=== PATIENT | male | born 1965 | race Caucasian/White ===

== ENCOUNTER 2017-07-04 12:13 | Observation (INO) ==
[2017-07-04 13:05] LABS: Basophils # 0.1 K/mcL (0.0-0.2); Basophils % 0.6 %; Eosinophils # 0.2 K/mcL (0.0-0.6); Eosinophils % 2.3 %; Hematocrit 46.7 % (37.5-50.1); Hemoglobin 15.7 g/dL (12.9-16.9); Immature Granulocytes % 0.3 % (0-4); Lymphocytes # 1.8 K/mcL (0.6-4.6); Lymphocytes % 20.4 %; Mean Corpuscular HGB Conc 33.6 g/dL (31.6-35.5); Mean Corpuscular Hemoglobin 30.1 pg (28.0-33.3); Mean Corpuscular Volume 89.6 fL (83.0-100.0); Mean Platelet Volume 9.3 fL (9.4-12.4); Monocytes # 0.6 K/mcL (0.0-1.3); Monocytes % 6.1 %; Neutrophils # 6.3 K/mcL (1.6-8.9); Platelet Count 226 K/mcL (140-400); Red Blood Count 5.21 M/mcL (4.19-5.50); Red Cell Distribution Width 13.7 % (11.5-14.5); Segmented Neutrophils % 70.3 %
[2017-07-04 13:29] LABS: Troponin I < 0.03 ng/mL (< 0.04)
[2017-07-04 13:38] LABS: Alanine Aminotransferase 20 Units/L (7-52); Albumin 4.5 g/dL (3.5-5.7); Albumin/Globulin Ratio 1.6 (1.1-2.2); Alkaline Phosphatase 108 Units/L (34-104); Aspartate Amino Transferase 16 Units/L (13-39); BUN/Creatinine Ratio 18 (6-26); Bilirubin,Total 0.5 mg/dL (0.3-1.0); Blood Urea Nitrogen 15 mg/dL (6-20); Calcium 9.4 mg/dL (8.6-10.3); Carbon Dioxide 21 mEq/L (23-29); Chloride 107 mEq/L (98-107); Globulin 2.8 g/dL (2.4-3.5); Glucose 217 mg/dL (70-105); Osmolality,Calculated 293 (280-300); Potassium 4.1 mEq/L (3.5-5.1); Sodium 138 mEq/L (136-145); Total Protein 7.3 g/dL (6.4-8.9); eGFR For African Americans > 60 (> 60); eGFR For Non-African Americans > 60 (> 60)
--- NOTE | 2017-07-04 14:49 | Emergency Department Note ---
Disposition Clinical Impression: Chest pain Qualifiers: Chest pain type: unspecified Qualified Code(s): R07.9 - Chest pain, unspecified Disposition: Admitted As Inpatient Condition: Good Referrals: Daniel Romero MD [Primary Care Provider] - Time of Disposition: 14:49 Chest Pain HPI - General Chief Complaint: ED Chest Pain Stated Complaint: CP Time Seen by Provider: 07/04/17 14:30 Source: patient Limitations: no limitations - History of Present Illness Severity scale (1-10): 5 - Related Data Home Medications Medication Instructions Recorded Confirmed Aspirin [Adult Low Dose Aspirin EC] 81 mg PO DAILY 05/12/15 05/12/15 Atorvastatin [Lipitor] 40 mg PO HS 05/12/15 05/12/15 Citalopram [CeleXA] 20 mg PO DAILY 05/12/15 05/12/15 Metoprolol [Lopressor] 25 mg PO DAILY 05/12/15 05/12/15 amLODIPine [Norvasc] 2.5 mg PO DAILY 05/12/15 05/12/15 Previous Rx's Medication Instructions Recorded Methocarbamol [Robaxin] 500 mg PO Q8HR #30 tablet 05/13/15 clonazePAM [Klonopin] 0.5 mg PO BID PRN #60 tablet 05/13/15 Cyclobenzaprine [Flexeril] 10 mg PO TID #20 tablet 09/30/15 Ibuprofen [Motrin] 600 mg PO Q6HR PRN #20 tablet 09/30/15 traMADol [Ultram] 50 mg PO Q6HR #20 tablet 09/30/15 predniSONE [Prednisone] 40 mg PO DAILY #10 tablet 10/05/15 Allergies Allergy/AdvReac Type Severity Reaction Status Date / Time No Known Allergies Allergy Verified 07/04/17 12:22 Chest Pain PMH - Past Medical History Medical history: Reports: COPD, coronary artery disease, diabetes, hypertension Psychiatric history: Reports: anxiety, depression - Social History Smoking Status: Current every day smoker Alcohol use: Reports: none Drug use: Reports: marijuana Physical Exam - General Limitations: no limitations General appearance: alert Course - Reevaluation(s) Reevaluation #1: 51-year-old with multiple risk factors no recent cardiac catheter comes in with chest pain. Saw his family doctor today sent in for evaluation. Workup here shows a normal troponin patient will be admitted for rule out. Time: 14:48 - Consultations Consultation #1: Discussed with , admit. Time: 14:48 Vital Signs Temperature 98 F 07/04/17 12:23 Pulse Rate 68 07/04/17 12:23 Respiratory Rate 20 07/04/17 12:23 Blood Pressure 134/82 07/04/17 12:23 O2 Sat by Pulse Oximetry 97 07/04/17 12:23 Temperature 98 F 07/04/17 12:23 Pulse Rate 68 07/04/17 12:23 Respiratory Rate 20 07/04/17 12:23 Blood Pressure 134/82 07/04/17 12:23 O2 Sat by Pulse Oximetry 97 07/04/17 12:23 Oxygen Delivery Oxygen Delivery Room Air Chest Pain - Lab Data Lab results reviewed: Yes I reviewed the patient's lab results. Result diagrams: 07/04/17 12:38 07/04/17 12:38 Lab Results 07/04/17 07/04/17 Range/Units 12:38 12:38 WBC 9.0 (4.3-11.1) K/mcL RBC 5.21 (4.19-5.50) M/mcL Hgb 15.7 (12.9-16.9) g/dL Hct 46.7 (37.5-50.1) % MCV 89.6 (83.0-100.0) fL MCH 30.1 (28.0-33.3) pg MCHC 33.6 (31.6-35.5) g/dL RDW 13.7 (11.5-14.5) % Plt Count 226 (140-400) K/mcL MPV 9.3 L (9.4-12.4) fL Immature Gran % 0.3 (0-4) % Seg Neutrophils % 70.3 % Lymphocytes % 20.4 % Monocytes % 6.1 % Eosinophils % 2.3 % Basophils % 0.6 % Neutrophils # 6.3 (1.6-8.9) K/mcL Lymphocytes # 1.8 (0.6-4.6) K/mcL Monocytes # 0.6 (0.0-1.3) K/mcL Eosinophils # 0.2 (0.0-0.6) K/mcL Basophils # 0.1 (0.0-0.2) K/mcL Sodium 138 (136-145) mEq/L Potassium 4.1 (3.5-5.1) mEq/L Chloride 107 (98-107) mEq/L Carbon Dioxide 21 L (23-29) mEq/L BUN 15 (6-20) mg/dL Creatinine 0.82 (0.70-1.30) mg/dL Est GFR ( Amer) > 60 (> 60) Est GFR (Non-Af Amer) > 60 (> 60) BUN/Creatinine Ratio 18 (6-26) Glucose 217 H (70-105) mg/dL Calculated Osmolality 293 (280-300) Calcium 9.4 (8.6-10.3) mg/dL Total Bilirubin 0.5 (0.3-1.0) mg/dL AST 16 (13-39) Units/L ALT 20 (7-52) Units/L Alkaline Phosphatase 108 H (34-104) Units/L Troponin I < 0.03 (< 0.04) ng/mL Serum Total Protein 7.3 (6.4-8.9) g/dL Albumin 4.5 (3.5-5.7) g/dL Globulin 2.8 (2.4-3.5) g/dL Albumin/Globulin Ratio 1.6 (1.1-2.2) - Radiology Data Radiology results reviewed: Yes I reviewed the patient's radiology results. Chest X-Ray 07/04/17 12:25 IMPRESSION: No acute cardiopulmonary process. D/ / 07/04/2017 13:10:45 Byron Sy MD / june Interpreting Provider: Byron Sy MD Heart Score - Score History: Moderately Suspicious EKG: Normal Age: 45-65 Risk Factors: Equal/Greater than 3 risk factor or history of atherosclerotic disease Troponin: Less than normal limit HEART Score Total: 4
[2017-07-04] MEDS ORDERED: Naloxone 0.4 MG/ML INJ IVP PRN (15:42)
[2017-07-04] MEDS ORDERED: D5% in Water 1,000 ML IVC PRN (15:43)
[2017-07-04] MEDS ORDERED: *HR* Dextrose 50 % in Water (Syg) 50 ML SYRINGE IVP PRN (15:43)
[2017-07-04] MEDS ORDERED: Dextrose Gel 15 GM/37.5 ML TUBE PO PRN ×2 (15:43)
[2017-07-04] MEDS ORDERED: Nitroglycerin 0.4 MG TAB.SUBL SL SCH (15:45)
--- NOTE | 2017-07-04 16:36 | Internal Med History&Physical ---
<Franco Wolf - Last Filed: 07/04/17 18:53> Date of Encounter: 07/04/17 Time of Encounter: 16:32 Internal Medicine - H&P: HPI Chief complaint: CHEST PAIN Admitted From: Home Plans for Post Hospital Care: Home History of present illness: Mr. Caceres is a 51 year old male with a PMH of COPD, coronary artery disease, diabetes, and hypertension. He presents to the ED today with a chief complaint of chest pain. He states that the chest pain is midsternal and feels like a "pushing sensation "in his chest pushing his heart to the left. He denies any radiation but does admit to some shortness of breath and at times diaphoresis. He rates the pain 4/10. He denies any aggravating or alleviating factors. The patient has a significant family history of sudden cardiac and a history of CAD with multiple risk factors for OH including diabetes, hypertension and smoking history. He reports he has not had any recent cardiac evaluation. His initial troponin is negative, his chest x-ray is also negative. Vital signs remained stable. He is being admitted to rule out ACS. Past Med Surg Social Fam HX - Past Medical History Medical history: COPD, coronary artery disease, diabetes, hypertension Psychiatric history: anxiety, depression - Social History Smoking Status: Current every day smoker Smokeless Tobacco Status: No Alcohol use: none Drug use: marijuana - Family History Father Hx Family Cardiac Disorders: Yes (CAD) Mother Age: 70 Living Status: Still Living Hx Family Cardiac Disorders: Yes (CHF) Internal Medicine - H&P: Meds Aspirin [Adult Low Dose Aspirin EC] 81 mg PO DAILY 05/12/15 [History] Atorvastatin [Lipitor] 40 mg PO HS 05/12/15 [History] Citalopram [CeleXA] 20 mg PO DAILY 05/12/15 [History] Metoprolol [Lopressor] 25 mg PO DAILY 05/12/15 [History] amLODIPine [Norvasc] 2.5 mg PO DAILY 05/12/15 [History] Nitroglycerin [Nitrostat] 0.4 mg SL Q5M 07/04/17 [History] Sitagliptin Phos/Metformin HCl [Janumet Xr 100-1,000 mg Tablet] 1 tab PO DAILY 07/04/17 [History] 3 Allergy/AdvReac Type Severity Reaction Status Date / Time No Known Allergies Allergy Verified 07/04/17 15:17 All Systems PM: A 10-system review of systems was performed and is negative for pertinent findings except as documented above in the HPI. Review of systems: REVIEW OF SYSTEMS GENERAL: Negative for any nausea, vomiting, fevers, chills, or weight loss. NEUROLOGIC: Negative for any blurry vision, blind spots, double vision, facial asymmetry, dysphagia, dysarthria, hemiparesis, hemisensory deficits, vertigo, ataxia. HEENT: Negative for any head trauma, neck trauma, neck stiffness, photophobia, phonophobia, sinusitis, rhinitis. CARDIAC: Negative for any paroxysmal nocturnal dyspnea, peripheral edema. Positive for chest pain, shortness of breath PULMONARY: Negative for any wheezing, COPD, or TB exposure. GASTROINTESTINAL: Negative for any abdominal pain, nausea, vomiting, bright red blood per rectum, melena. GENITOURINARY: Negative for any dysuria, hematuria, incontinence. INTEGUMENTARY: Negative for any rashes, cuts, insect bites. RHEUMATOLOGIC: Negative for any joint pains, photosensitive rashes, history of vasculitis or kidney problems. HEMATOLOGIC: Negative for any abnormal bruising, frequent infections or bleeding. - Constitutional Vitals: Temp Pulse Resp BP Pulse Ox 98 F 68 14 129/78 97 07/04/17 12:23 07/04/17 12:23 07/04/17 16:27 07/04/17 16:27 07/04/17 12:23 General appearance: Present: cooperative, A&O X 3, no acute distress, answers questions appropriately Exam: PHYSICAL EXAMINATION: GENERAL: The patient is a well-developed, well-nourished male in no apparent distress. He is alert and oriented x3. HEENT: Head is normocephalic and atraumatic. Extraocular muscles are intact. Pupils are equal, round, and reactive to light and accommodation. NECK: Supple. No carotid bruits. No lymphadenopathy or thyromegaly. LUNGS: Clear to auscultation. HEART: Regular rate and rhythm without murmur. ABDOMEN: Soft, diffuse, mild abdominal tenderness, nondistended. Positive bowel sounds. No hepatosplenomegaly was noted. EXTREMITIES: Without any cyanosis, clubbing, rash, lesions or edema. NEUROLOGIC: No facial droop or slurred speech noted PSYCHIATRIC: Appropriate affect, but denies suicidal or homicidal ideations. SKIN: No ulceration , rashes or lesions Internal Med - H&P Results - Labs CBC & Chem 7: 07/04/17 12:38 07/04/17 12:38 - EKG Data -: EKG Interpreted by Myself EKG shows normal: sinus rhythm - Impressions Impressions Chest X-Ray 07/04/17 12:25 IMPRESSION: No acute cardiopulmonary process. D/ / 07/04/2017 13:10:45 Byron Sy MD / june Interpreting Provider: Byron Sy MD - Assessment and plan (1) Chest pain Current Visit: Yes Status: Acute Assessment and plan: ASSESSMENT: Presents today with a three-day history of chest pain described as a dull "pushing sensation". No prior h/o OH. He has a significant family hx of sudden cardiac . Risk factors include HTN, DM, smoking hx, and family hx. Initial troponin negative, CXR negative for acute pulmonary process, EKG shows no ST elevation or depression. He is being admitted for observation for ACS rule out PLAN: - cardiac enzymes x 2 q 6 hr - EKG now and in AM - ASA - O2 by NC to keep SpO2 greater than 92% - CBCD, BMP in AM - Fasting lipids - Heparin 5000 U SQ BID - 2D Echo - Stress in the am - Cardiology consult pending results of workup Qualifiers: Chest pain type: unspecified Qualified Code(s): R07.9 - Chest pain, unspecified (2) Diabetes Current Visit: Yes Status: Acute Assessment and plan: Sliding scale insulin coverage Qualifiers: Diabetes mellitus type: type 2 Diabetes mellitus complication status: without complication Qualified Code(s): E11.9 - Type 2 diabetes mellitus without complications (3) Tobacco abuse Current Visit: Yes Status: Acute Assessment and plan: Daily smoker, does not wish to quit at this time nicotine patch remove at midnight (4) Hypertension Current Visit: Yes Status: Chronic Assessment and plan: History of hypertension, BP currently stable, continue calcium channel florentin and beta florentin Qualifiers: Hypertension type: essential hypertension Qualified Code(s): I10 - Essential (primary) hypertension (5) DVT prophylaxis Current Visit: Yes Status: Acute Assessment and plan: Subcutaneous heparin - Time Spent With Patient Total time spent is greater than 50% in coordination of care (as documented) at patient's floor/unit and/or counseling patient: 25 - 35 minutes <Candelario Overton - Last Filed: 07/04/17 21:30> Date of Encounter: 07/04/17 Internal Medicine - H&P: HPI History of present illness: Mr. Caceres is a 51 year old male All Systems PM: A 10-system review of systems was performed and is negative for pertinent findings except as documented above in the HPI. - Constitutional Vitals: Temp Pulse Resp BP Pulse Ox 98.0 F 66 16 112/66 96 07/04/17 19:07 07/04/17 19:07 07/04/17 19:07 07/04/17 19:07 07/04/17 19:07 Internal Med - H&P Results - Labs CBC & Chem 7: 07/04/17 12:38 07/04/17 12:38 Labs: Cardiac Enzymes 07/04/17 Range/Units 16:56 Troponin I < 0.03 (< 0.04) ng/mL - Attending Attestation I performed a history and physical exam of the patient and discussed his management with MAORI PHYSIOTHERAPIST. I reviewed the MAORI PHYSIOTHERAPIST's note and agree with the documented findings and plan of care. Briefly, patient is a 51 y/o WM with history of CAD who presented to ED with 1 -day history of substernal chest pain accompanied by some SOB. He is high risk for ACS with DM, HTN, smoking status, and family history. Will admit for ACS rule-out with trending of troponin and stress test in AM. PE: Gen - Awake, alert, NAD HEENT - NCAT, PERRLA, EOMI, hearing grossly intact, oropharynx benign CV - RRR, normal S1 and S2, no M/R/G, no BLE edema Resp - CTAB, no W/R/R, normal WOB Skin - Warm, dry, no rashes/lesions/ulcers Psych - Normal mood and affect, no depression or anxiety Candelario Overton MD - Assessment and plan (1) Chest pain Current Visit: Yes Status: Acute Qualifiers: Chest pain type: unspecified Qualified Code(s): R07.9 - Chest pain, unspecified (2) Diabetes Current Visit: Yes Status: Acute Qualifiers: Diabetes mellitus type: type 2 Diabetes mellitus complication status: without complication Qualified Code(s): E11.9 - Type 2 diabetes mellitus without complications (3) Hypertension Current Visit: Yes Status: Chronic Qualifiers: Hypertension type: essential hypertension Qualified Code(s): I10 - Essential (primary) hypertension (4) Tobacco abuse Current Visit: Yes Status: Acute (5) DVT prophylaxis Current Visit: Yes Status: Acute - Time Spent With Patient Total time spent is greater than 50% in coordination of care (as documented) at patient's floor/unit and/or counseling patient:
[2017-07-04] MEDS ORDERED: Nicotine 21 MG PATCH.TD24 TD SCH (16:45)
[2017-07-04] MEDS ORDERED: Nitroglycerin 0.4 MG TAB.SUBL SL PRN ×2 (17:28→17:29)
[2017-07-04] MEDS: Aspirin Enteric Coated 81 MG Tablet PO SCH (17:41)
[2017-07-04] MEDS: amLODIPine 5 MG TABLET PO SCH (17:41)
[2017-07-04] MEDS: *HR* Heparin 5,000 UNIT/ML VIAL SQ SCH ×2 (17:42→18:24)
[2017-07-04] MEDS: Insulin LISPRO 300 UNITS/3 ML VIAL SQ SCH (17:43)
[2017-07-04] MEDS ORDERED: Insulin LISPRO 300 UNITS/3 ML VIAL SQ SCH (21:00)
[2017-07-05] MEDS: *HR* Heparin 5,000 UNIT/ML VIAL SQ SCH (05:12)
[2017-07-05 05:41] LABS: Chol/HDL Ratio 3.5 (0-4.9)
[2017-07-05] MEDS ORDERED: Regadenoson 0.4 MG/5 ML SYRINGE IVP ONE (08:09)
[2017-07-05] MEDS: Insulin LISPRO 300 UNITS/3 ML VIAL SQ SCH ×2 (08:17→12:32)
[2017-07-05] MEDS: amLODIPine 5 MG TABLET PO SCH (10:40)
[2017-07-05] MEDS: Aspirin Enteric Coated 81 MG Tablet PO SCH (10:42)
[2017-07-05 11:00] VITALS: BP 115/70
--- NOTE | 2017-07-05 13:23 | Discharge Summary ---
- NOTES TO OUTPATIENT PROVIDER Notes to Outpatient Provider: Follow-up with primary care physician within the week Orders not resulted at time of discharge: Pending orders 07/05/17 06:15 NM valeria perf SPECT multi [NM] Routine Date of Encounter: 07/05/17 Time of Encounter: 13:21 - Discharge Diagnosis (1) Chest pain Priority: Primary Status: Resolved Qualifiers: Chest pain type: unspecified Qualified Code(s): R07.9 - Chest pain, unspecified (2) Diabetes Priority: Primary Status: Chronic Qualifiers: Diabetes mellitus type: type 2 Diabetes mellitus complication status: without complication Qualified Code(s): E11.9 - Type 2 diabetes mellitus without complications (3) Hypertension Priority: Primary Status: Chronic Qualifiers: Hypertension type: essential hypertension Qualified Code(s): I10 - Essential (primary) hypertension (4) Tobacco abuse Priority: Primary Status: Acute Hospital course: Mr. Caceres is a 51 year old male with a past medical history of COPD, CAD, diabetes mellitus, and hypertension. He presented to the ER with chest pain that was midsternal and felt like up "pushing sensation". He denied any radiation of pain but said he did have some shortness of breath and starting of some sweats. His troponins were negative, his chest x-ray with nothing acute. Vital signs were stable. He underwent a stress test. Impression low level exercise pharmacological stress ECG is negative for ischemia at level of heart rate achieved. Gated EF greater than 70%. Small size mild intensity fixed inferior perfusion defect consistent with artifact. Perfusion imaging was negative for ischemia or infarct. Patient is a smoker and cessation was recommended. Patient was discharged in a stable condition. Discharge discussed with: patient, family, nurse Time spent discussing smoking cessation with patient: 3 to 10 minutes - Time Spent with Patient Total time spent providing and/or coordinating discharge services: Less than 30 minutes - Discharge Medications Home Medications: Aspirin [Adult Low Dose Aspirin EC] 81 mg PO DAILY 05/12/15 [History] Atorvastatin [Lipitor] 40 mg PO HS 05/12/15 [History] Citalopram [CeleXA] 20 mg PO DAILY 05/12/15 [History] Metoprolol [Lopressor] 25 mg PO DAILY 05/12/15 [History] amLODIPine [Norvasc] 2.5 mg PO DAILY 05/12/15 [History] Nitroglycerin [Nitrostat] 0.4 mg SL Q5M 07/04/17 [History] Sitagliptin Phos/Metformin HCl [Janumet Xr 100-1,000 mg Tablet] 1 tab PO DAILY 07/04/17 [History] Allergies/Adverse Reactions: 3 Allergy/AdvReac Type Severity Reaction Status Date / Time No Known Allergies Allergy Verified 07/04/17 15:17 Date of admission: 07/04/17 15:51 Primary care physician: Daniel Romero MD Discharging clinician: Carly Madden Anticipated date of discharge: 07/05/17 - Constitutional Vitals: Temp Pulse Resp BP Pulse Ox 97.8 F 71 14 115/70 97 07/05/17 10:59 07/05/17 10:59 07/05/17 10:59 07/05/17 10:59 07/05/17 10:59 General appearance: Present: cooperative, A&O X 3, no acute distress, answers questions appropriately - Head Head exam: Present: atraumatic, normocephalic - Eye Eye exam: Present: PERRL, conjuntiva pink, sclera anicteric Pupils: Present: PERRL - Neck Neck exam general surgery: Present: supple, trachea midline. Absent: lymphadenopathy - Respiratory Respiratory exam: Present: CTAB. Absent: accessory muscle use, rales, rhonchi, wheezes - Cardiovascular Cardiovascular exam: Present: RRR, +S1, +S2. Absent: diastolic murmur, gallop, rubs, systolic murmur - GI/Abdominal GI/Abdominal exam: Present: normal bowel sounds, soft, no peritoneal signs. Absent: distended, tenderness - Extremities Exam Extremities exam: Present: warm, radial pulses palpable and symmetrical. Absent : calf tenderness, cyanotic, pedal edema - Neurological Exam Neurological exam: Present: alert, CN II-XII intact, normal gait, oriented X3, no focal deficits. Absent: pronater drift, facial droop, speech deficit - Skin Skin exam: Present: dry, intact, normal color, warm - Patient Status Disposition: Home, Self-Care Condition: Good Functional capacity at discharge: independent ambulation Overall status at discharge: patient is back to baseline - Discharge Instructions Instructions: Chest Pain (GEN), Chronic Hypertension (DC) Follow Up With: Daniel Romero MD [Primary Care Provider] - - Diet and Activity Activity: resume usual activities as tolerated Diet: advance to your usual diet, diabetic diet, low fat, low cholesterol, low salt diet
--- NOTE | 2017-07-07 08:55 | Electrocardiograph Report ---
[facility] Test Date: 2017-07-04 Pat Name: Danny Caceres Department: 104 Room: 3B37 Gender: M [employer] Worker: : 1965 Requested By: Robbi Marley Order Number: [id number] Reading MD: Marvin Isaacs Measurements Intervals [place] Rate: 74 P: 38 [place]: 137 QRS: 56 QRSD: 89 T: 55 QT: 376 QTc: 403 Interpretive Statements SINUS RHYTHM wnl Electronically Signed On 07-07-2017 8:54:07 EDT by Marvin Isaacs
== END 2017-07-05 14:10 | disposition home or self-care (01) ==
LOC: EMEROO 12:13 → 3BNU 12:13
PROVIDERS: ADMIT Nurse Practitioner; ATTEND Registered Nurse

== ENCOUNTER 2018-01-08 23:15 | Observation (INO) ==
[2018-01-08] MEDS ORDERED: Nitroglycerin 0.4 MG TAB.SUBL SL PRN (23:36)
[2018-01-08] MEDS ORDERED: Aspirin 325 MG TABLET PO ONE (23:36)
[2018-01-08] MEDS ORDERED: Ondansetron 4 MG/2 ML VIAL IVP ONE (23:37)
--- NOTE | 2018-01-08 23:39 | Emergency Department Note ---
Disposition Clinical Impression: Hyperglycemia Chest pain Qualifiers: Chest pain type: unspecified Qualified Code(s): R07.9 - Chest pain, unspecified Pancreatitis Qualifiers: Chronicity: acute Pancreatitis type: unspecified pancreatitis type Acute pancreatitis complication: unspecified Qualified Code(s): K85.90 - Acute pancreatitis without necrosis or infection, unspecified Disposition: Admitted As Inpatient Condition: Fair Time of Disposition: 02:07 Chest Pain HPI - General Chief Complaint: ED Chest Pain Stated Complaint: cp Time Seen by Provider: 01/08/18 23:29 Source: patient Mode of arrival: ambulatory Limitations: no limitations Vital Signs Reviewed: Yes Nursing Notes Reviewed: Yes - History of Present Illness HPI Narrative: 52-year-old male with a history of CAD, hypertension, diabetes presents for evaluation of chest pain. Patient describes nonexertional chest pain that occurred at 2000 this evening. Since his left side of his chest. Patient does note that the pain does wrap around to his back. Patient states he was nonexertional. Denies any aggravating or alleviating factors. Patient did not take any medication prior to ED arrival. States he does have a history of coronary artery disease but does not have any stents. Patient denies being on any blood thinners. Patient reported recent diagnosis of pneumonia over the past couple days. Patient's been on antibiotic as well as an inhaler. Patient denies any fevers or cough. Reports nausea earlier in the week but denies any vomiting. No diaphoresis. Severity scale (1-10): 7 - Related Data Home Medications Medication Instructions Recorded Confirmed Aspirin [Adult Low Dose Aspirin EC] 81 mg PO DAILY 05/12/15 01/09/18 Atorvastatin [Lipitor] 40 mg PO HS 05/12/15 01/09/18 Citalopram [CeleXA] 20 mg PO DAILY 05/12/15 01/09/18 Metoprolol [Lopressor] 25 mg PO DAILY 05/12/15 01/09/18 amLODIPine [Norvasc] 2.5 mg PO DAILY 05/12/15 01/09/18 Nitroglycerin [Nitrostat] 0.4 mg SL Q5M 07/04/17 01/09/18 Sitagliptin Phos/Metformin HCl 1 tab PO DAILY 07/04/17 01/09/18 [Janumet Xr 100-1,000 mg Tablet] Previous Rx's Medication Instructions Recorded Doxycycline 100 mg PO BID #14 capsule 01/01/18 predniSONE [PredniSONE] 20 mg PO BID #10 tablet 01/01/18 Allergies Allergy/AdvReac Type Severity Reaction Status Date / Time gabapentin [From Neurontin] AdvReac Vomiting Verified 01/03/18 14:15 isosorbide [From Imdur] AdvReac Vomiting Verified 01/03/18 14:15 All systems ED: reviewed and negative except as stated. Constitutional: Denies: fever Cardiovascular: Reports: chest pain Respiratory: Denies: cough, dyspnea Gastrointestinal: Reports: nausea. Denies: abdominal pain, vomiting Chest Pain PMH - Past Medical History Medical history: Reports: arthritis, COPD, coronary artery disease, diabetes, hyperlipidemia, hypertension Psychiatric history: Reports: anxiety, depression - Social History Smoking Status: Current every day smoker Alcohol use: Reports: none Drug use: Reports: marijuana Physical Exam - General Limitations: no limitations General appearance: alert, in no apparent distress - Head Head exam: atraumatic, normocephalic, normal inspection - Eye Eye exam: Present: normal appearance, PERRL, EOMI - ENT ENT exam: normal exam, mucous membranes moist - Neck Neck exam: Present: normal inspection, trachea midline - Chest Chest inspection: Present: normal inspection, symmetric chest wall rise. Absent: tenderness, rash - Respiratory Respiratory exam: Present: normal lung sounds bilaterally, prolonged expiratory phase. Absent: respiratory distress - Cardiovascular Cardiovascular exam: Present: regular rate, normal rhythm. Absent: systolic murmur - Abdominal Exam Abdominal exam: Present: soft, Non-Tender - Extremities Exam Extremities exam: Present: normal inspection. Absent: pedal edema - Back Exam Back exam: Present: normal inspection - Neurological Exam Neurological exam: Present: alert, oriented X3, CN II-XII intact - Skin Skin exam: Present: warm, dry, intact, normal color Course Course Narrative: Patient seen and examined. Patient will get basic cardiopulmonary screening evaluation with EKG, chest x-ray and labs. Disposition pending. - Reevaluation(s) Reevaluation #1: Patient seen and examined. Patient stated his pain has resolved. Patient records reviewed show that he has had a stress test back in June of this year which showed an EF of 70% negative for ischemia or infarct. Patient's lipase is mildly elevated. Patient denies history of bowel closing. Patient denies any epigastric pain. Time: 01:06 Reevaluation #2: Patient's been resting comfortably. No acute distress. Time: 02:06 Vital Signs Temperature 98.2 F 01/08/18 23:18 Pulse Rate 77 01/08/18 23:18 Respiratory Rate 18 01/08/18 23:18 Blood Pressure 150/86 01/08/18 23:18 O2 Sat by Pulse Oximetry 97 01/08/18 23:18 Temperature 98.2 F 01/08/18 23:18 Pulse Rate 77 01/08/18 23:18 Respiratory Rate 18 01/08/18 23:18 Blood Pressure 150/86 01/08/18 23:18 O2 Sat by Pulse Oximetry 97 01/09/18 00:08 Oxygen Delivery Oxygen Delivery Room Air Chest Pain - MDM Narrative Medical decision making narrative: Patient presented for concerns of chest pain. Patient does have recent diagnosis of pneumonia. Does have risk factors for ACS. Patient's describing left-sided chest pain but did radiate to his back. Patient denies history of heart attacks. Patient had basic cardiopulmonary screening evaluation shows negative troponin. Patient does have elevated blood sugars without signs of DKA. Patient lungs are clear otherwise. Chest x-ray shows no acute abnormality. Patient's chest pain etiology is unclear. Patient has had a stress test in June the which was negative for ischemia or infarct. Patient is not able to accurately describe his pain. Patient's chest pain resolved without any specific interventions in the ED. Patient did have a mild elevation of his lipase however there is no epigastric discomfort. Patient is resting comfortably in the ED. Patient has been on prednisone as well as doxycycline recently for they said pneumonia. Patient did not get a CT scan abd/ pelvis. - Lab Data Lab results reviewed: Yes I reviewed the patient's lab results. Result diagrams: 01/09/18 00:03 01/09/18 00:03 Lab Results 01/09/18 01/09/18 01/09/18 Range/Units 00:03 00:03 00:03 WBC 15.0 H (4.3-11.1) K/mcL RBC 5.22 (4.19-5.50) M/mcL Hgb 15.4 (12.9-16.9) g/dL Hct 45.5 (37.5-50.1) % MCV 87.2 (83.0-100.0) fL MCH 29.5 (28.0-33.3) pg MCHC 33.8 (31.6-35.5) g/dL RDW 12.9 (11.5-14.5) % Plt Count 292 D (140-400) K/mcL MPV 8.9 L (9.4-12.4) fL Immature Gran % 1.4 (0-4) % Seg Neutrophils % 70.3 % Lymphocytes % 21.7 % Monocytes % 4.9 % Eosinophils % 1.4 % Basophils % 0.3 % Neutrophils # 10.5 H (1.6-8.9) K/mcL Lymphocytes # 3.3 (0.6-4.6) K/mcL Monocytes # 0.7 (0.0-1.3) K/mcL Eosinophils # 0.2 (0.0-0.6) K/mcL Basophils # 0.1 (0.0-0.2) K/mcL PT 11.3 (9.4-12.1) Seconds INR 1.0 APTT 27.0 (26.0-36.0) Seconds Sodium (136-145) mEq/L Potassium (3.5-5.1) mEq/L Chloride (98-107) mEq/L Carbon Dioxide (23-29) mEq/L BUN (6-20) mg/dL Creatinine (0.70-1.30) mg/dL Est GFR ( Amer) (> 60) Est GFR (Non-Af Amer) (> 60) BUN/Creatinine Ratio (6-26) Glucose (70-105) mg/dL Calculated Osmolality (280-300) Calcium (8.6-10.3) mg/dL Troponin I (< 0.04) ng/mL B-Natriuretic Peptide 28 (Less than 100) pg/mL Lipase (11-82) Units/L 01/09/18 01/09/18 Range/Units 00:03 00:03 WBC (4.3-11.1) K/mcL RBC (4.19-5.50) M/mcL Hgb (12.9-16.9) g/dL Hct (37.5-50.1) % MCV (83.0-100.0) fL MCH (28.0-33.3) pg MCHC (31.6-35.5) g/dL RDW (11.5-14.5) % Plt Count (140-400) K/mcL MPV (9.4-12.4) fL Immature Gran % (0-4) % Seg Neutrophils % % Lymphocytes % % Monocytes % % Eosinophils % % Basophils % % Neutrophils # (1.6-8.9) K/mcL Lymphocytes # (0.6-4.6) K/mcL Monocytes # (0.0-1.3) K/mcL Eosinophils # (0.0-0.6) K/mcL Basophils # (0.0-0.2) K/mcL PT (9.4-12.1) Seconds INR APTT (26.0-36.0) Seconds Sodium 135 L (136-145) mEq/L Potassium 4.0 (3.5-5.1) mEq/L Chloride 103 (98-107) mEq/L Carbon Dioxide 24 (23-29) mEq/L BUN 20 (6-20) mg/dL Creatinine 0.80 (0.70-1.30) mg/dL Est GFR ( Amer) > 60 (> 60) Est GFR (Non-Af Amer) > 60 (> 60) BUN/Creatinine Ratio 25 (6-26) Glucose 331 H (70-105) mg/dL Calculated Osmolality 296 (280-300) Calcium 9.5 (8.6-10.3) mg/dL Troponin I < 0.03 (< 0.04) ng/mL B-Natriuretic Peptide (Less than 100) pg/mL Lipase 123 H (11-82) Units/L - Radiology Data Radiology results reviewed: Yes I reviewed the patient's radiology results. Chest X-Ray 01/09/18 23:31 IMPRESSION: No acute cardiopulmonary disease. D/ / Arthur Pierce MD / Arthur Pierce MD Interpreting Provider: Arthur Pierce MD - EKG Data EKG attestation: Yes I reviewed and interpreted this EKG. EKG shows normal: sinus rhythm Rate: normal Rhythm: NSR [place]/QRS: normal T wave inversions noted in: v1 When compared to previous EKG there are: no significant changes Interpretation: no acute changes Heart Score - Score History: Moderately Suspicious EKG: Non Specific repolarisation Disturbance Age: 45-65 Risk Factors: Equal/Greater than 3 risk factor or history of atherosclerotic disease Troponin: Less than normal limit HEART Score Total: 5 S.B.A.R. - S.B.A.Gregory Situation: Demographics Background: Presenting Complaint Assessment: Vital Signs, Course and respsone to treatment, Patient/Family Expectation Recommendation: Barrier(s) to disposition, Recommendation based on pending studies, treatments, or consults S.B.A.RMelvin Report Given to: Dr. Hilary RamirezBMelvinAMalika Repor Time: 02:06 Attestation Statement - Attestation Attestation: I examined this patient and my medical decision-making was reviewed with the Resident Physician. I agree with the documented findings, disposition and treatment plan as described except to the extent set forth below. Initial cardiac biomarkers are negative. Chest pain is atypical in nature. We will admit for turning of cardiac biomarkers and cardiac consultation. Heart score is greater than 3.
[2018-01-09 00:23] LABS: Basophils # 0.1 K/mcL (0.0-0.2); Basophils % 0.3 %; Eosinophils # 0.2 K/mcL (0.0-0.6); Eosinophils % 1.4 %; Hematocrit 45.5 % (37.5-50.1); Hemoglobin 15.4 g/dL (12.9-16.9); Immature Granulocytes % 1.4 % (0-4); Lymphocytes # 3.3 K/mcL (0.6-4.6); Lymphocytes % 21.7 %; Mean Corpuscular HGB Conc 33.8 g/dL (31.6-35.5); Mean Corpuscular Hemoglobin 29.5 pg (28.0-33.3); Mean Corpuscular Volume 87.2 fL (83.0-100.0); Mean Platelet Volume 8.9 fL (9.4-12.4); Monocytes # 0.7 K/mcL (0.0-1.3); Monocytes % 4.9 %; Neutrophils # 10.5 K/mcL (1.6-8.9); Platelet Count 292 K/mcL (140-400); Red Blood Count 5.22 M/mcL (4.19-5.50); Red Cell Distribution Width 12.9 % (11.5-14.5); Segmented Neutrophils % 70.3 %
[2018-01-09 00:41] LABS: BUN/Creatinine Ratio 25 (6-26); Blood Urea Nitrogen 20 mg/dL (6-20); Calcium 9.5 mg/dL (8.6-10.3); Carbon Dioxide 24 mEq/L (23-29); Chloride 103 mEq/L (98-107); Glucose 331 mg/dL (70-105); Osmolality,Calculated 296 (280-300); Sodium 135 mEq/L (136-145); eGFR For Non-African Americans > 60 (> 60)
[2018-01-09 00:43] LABS: Troponin I < 0.03 ng/mL (< 0.04)
[2018-01-09 01:02] LABS: Prothrombin Time 11.3 Seconds (9.4-12.1)
[2018-01-09] MEDS ORDERED: 0.9 % Sodium Chloride 1,000 ML IVC ONE (01:30)
--- NOTE | 2018-01-09 07:56 | Internal Med History&Physical ---
Date of Encounter: 01/09/18 Time of Encounter: 07:52 Internal Medicine - H&P: HPI Chief complaint: CP History of present illness: Mr. Caceres is a 52 year old male with a history of CAD, hypertension, diabetes presents nonexertional chest pain that radiate to his back that with aggravating or alleviating factors associated with nausea but he denies any vomiting and diaphoresis.He was recently diagnosed with pneumonia and was treated with antibiotics. He was evaluated by the Er and his work up were negative. Past Med Surg Social Fam HX - Past Medical History Medical history: arthritis, COPD, coronary artery disease, diabetes, hyperlipidemia, hypertension Additional medical history: heart problems Psychiatric history: anxiety, depression - Past Surgical History Additional surgical history: heart cath-no stent - Social History Smoking Status: Current every day smoker Packs per day: 1 Smokeless Tobacco Status: No Alcohol use: none Drug use: marijuana - Family History Father Living Status: Hx Family Cardiac Disorders: Yes (CAD) Mother Living Status: Still Living Hx Family Cardiac Disorders: Yes (CHF) Internal Medicine - H&P: Meds RX: Atorvastatin [Lipitor] 40 mg PO HS 05/12/15 [History] RX: Citalopram [CeleXA] 20 mg PO DAILY 05/12/15 [History] RX: amLODIPine [Norvasc] 2.5 mg PO DAILY 05/12/15 [History] RX: Nitroglycerin [Nitrostat] 0.4 mg SL Q5M 07/04/17 [History] RX: Aspirin 81 mg PO DAILY 01/09/18 [History] RX: Clopidogrel [Plavix] 75 mg PO DAILY tablet 01/11/18 [Rx] RX: Clopidogrel [Plavix] 75 mg PO DAILY #30 tablet 01/11/18 [Rx] RX: Metformin HCl 1,000 mg PO BID #60 tablet 01/11/18 [Rx] RX: Metoprolol [Lopressor] 12.5 mg PO BID #0 01/11/18 [Rx] glyBURIDE [GlyBURIDE] 5 mg PO BIDWM #60 tablet 01/11/18 [Rx] Allergy/AdvReac Type Severity Reaction Status Date / Time gabapentin [From Neurontin] AdvReac Vomiting Verified 01/03/18 14:15 isosorbide [From Imdur] AdvReac Vomiting Verified 01/03/18 14:15 All Systems PM: A 10-system review of systems was performed and is negative for pertinent findings except as documented above in the HPI. - Constitutional Constitutional: no chills, no fever(s), no night sweats - Cardiovascular Cardiovascular ROS IM: chest pain, no diaphoresis, no dyspnea, no lightheadedness, no palpitations, no syncope - Respiratory Respiratory: no cough, no dyspnea, no wheezing, no excessive phlegm production - Gastrointestinal Gastrointestinal: no abdominal pain, no diarrhea, no hematemesis, no hematochezia, no melena, no nausea, no vomiting - Neurological Neurological ROS: no confusion, no convulsions, no focal weakness, no numbness, no tingling, no tremor(s) - Constitutional Vitals: Temp Pulse Resp BP Pulse Ox 98.3 F 64 16 133/81 97 01/09/18 03:17 01/09/18 03:17 01/09/18 03:17 01/09/18 03:17 01/09/18 03:17 General appearance: Present: A&O X 3 Exam: awake - Head Head exam: Present: atraumatic, normocephalic - Neck Neck exam general surgery: Present: supple, trachea midline. Absent: lymphadenopathy - Respiratory Respiratory exam: Present: CTAB. Absent: accessory muscle use, rales, rhonchi, wheezes - Cardiovascular Cardiovascular exam: Present: RRR, +S1, +S2. Absent: diastolic murmur, gallop, rubs, systolic murmur - Extremities Exam Extremities exam: Present: warm, radial pulses palpable and symmetrical. Absent: calf tenderness, cyanotic, pedal edema Internal Med - H&P Results - Labs CBC & Chem 7: 01/10/18 17:51 01/10/18 17:51 Labs: Short CBC 01/09/18 Range/Units 00:03 WBC 15.0 H (4.3-11.1) K/mcL Hgb 15.4 (12.9-16.9) g/dL Hct 45.5 (37.5-50.1) % Plt Count 292 D (140-400) K/mcL Neutrophils # 10.5 H (1.6-8.9) K/mcL BMP 01/09/18 00:03 Sodium 135 L Potassium 4.0 Chloride 103 Carbon Dioxide 24 BUN 20 Creatinine 0.80 Glucose 331 H Calcium 9.5 Cardiac Enzymes 01/09/18 Range/Units 00:03 Troponin I < 0.03 (< 0.04) ng/mL - Impressions ITS Impressions Chest X-Ray 01/09/18 23:31 IMPRESSION: No acute cardiopulmonary disease. D/ / Arthur Pierce MD / Arthur Pierce MD Interpreting Provider: Arthur Pierce MD - Assessment and plan (1) Chest pain Status: Acute Assessment and plan: ASSESSMENT: - Chest pain r/o CAD PLAN: - cardiac enzymes x 2 q 8 hr - EKG now and in AM - ASA - O2 by NC to keep SpO2 greater than 92% - UA - CBCD, BMP in AM - Fasting lipids - Tylenol 650 mg PO q 4-6 hr PRN headache - Home meds (check list) - Heparin 5000 U SQ BID - 2D Echo - Cardiology consult Qualifiers: Chest pain type: precordial pain Qualified Code(s): R07.2 - Precordial pain (2) Diabetes Status: Chronic Assessment and plan: Starting ISC with insulin moderate coverage Qualifiers: Diabetes mellitus type: type 2 Diabetes mellitus complication status: without complication Qualified Code(s): E11.9 - Type 2 diabetes mellitus without complications (3) Hypertension Status: Chronic Assessment and plan: We will continue home meds Qualifiers: Hypertension type: essential hypertension Qualified Code(s): I10 - Essential (primary) hypertension (4) Tobacco abuse Status: Acute (5) DVT prophylaxis Status: Acute - Time Spent With Patient Total time spent is greater than 50% in coordination of care (as documented) at patient's floor/unit and/or counseling patient:
[2018-01-09] MEDS ORDERED: Nitroglycerin 0.4 MG TAB.SUBL SL SCH (08:30)
[2018-01-09] MEDS ORDERED: Naloxone 0.4 MG/ML INJ IVP PRN (09:12)
--- NOTE | 2018-01-09 11:27 | Cardiology Consult Note ---
Date of Encounter: 01/09/18 Time of Encounter: 11:05 Assessment and Plan (1) Chest pain Current Visit: Yes Status: Acute Recurrent episodes of chest pain ongoing recent negative stress test June 2017 with a preserved ejection fraction. She does have nonobstructive disease with a 60% blockage in the proximal LAD therefore high risk territory. FFR at that time by Dr. Barroso was unremarkable. With ongoing symptoms I do believe reevaluation is reasonable. Risks benefits and alternatives of N LHC was discussed with patient and he agrees to proceed Qualifiers: Ischemic chest pain type: unstable angina pectoris Qualified Code(s): I20.0 - Unstable angina Discussion w patient/family: The assessment and plan as outlined above was discussed with the patient and/or family members who expressed understanding and agreement. All questions were answered. Thank you for involving us in the care of your patient. Please call with any questions. History of Present Illness Consult date: 01/09/18 Consult reason: Chest pain Chief complaint: Chest Pain History of present illness: Mr. Caceres is a 52 year old male with history of diabetes, hypertension, hyper lipidemia, nonobstructive coronary artery disease with a 60% blockage in his proximal LAD 2015 here complaining of chest pain. Describes chest pain as retrosternal radiating to his back associated with mild diaphoresis and shortness of breath area. I was unable to review his LHC as it is not on the current system. Past Med Surg Social Fam HX - Past Medical History Medical history: arthritis, COPD, coronary artery disease, diabetes, hyperlipidemia, hypertension Additional medical history: heart problems Psychiatric history: anxiety, depression - Past Surgical History Additional surgical history: heart cath-no stent - Social History Smoking Status: Current every day smoker Packs per day: 1 Smokeless Tobacco Status: No Alcohol use: none Drug use: marijuana - Family History Mother Living Status: Still Living Hx Family Cardiac Disorders: Yes (CHF) Father Living Status: Hx Family Cardiac Disorders: Yes (CAD) Medications and Allergies Atorvastatin [Lipitor] 40 mg PO HS 05/12/15 [History] Citalopram [CeleXA] 20 mg PO DAILY 05/12/15 [History] Metoprolol [Lopressor] 25 mg PO DAILY 05/12/15 [History] amLODIPine [Norvasc] 2.5 mg PO DAILY 05/12/15 [History] Nitroglycerin [Nitrostat] 0.4 mg SL Q5M 07/04/17 [History] Sitagliptin Phos/Metformin HCl [Janumet Xr 100-1,000 mg Tablet] 1 tab PO DAILY 07/04/17 [History] Doxycycline 100 mg PO BID #14 capsule 01/01/18 [Rx] predniSONE [PredniSONE] 20 mg PO BID #10 tablet 01/01/18 [Rx] Aspirin 81 mg PO DAILY 01/09/18 [History] Allergy/AdvReac Type Severity Reaction Status Date / Time gabapentin [From Neurontin] AdvReac Vomiting Verified 01/03/18 14:15 isosorbide [From Imdur] AdvReac Vomiting Verified 01/03/18 14:15 All Systems Review: The remainder of the systems were reviewed and are negative Physical Examination Vital Signs, Last 4 Hours Temp Pulse Resp BP Pulse Ox 01/09/18 10:54 98.1 F 60 17 119/72 97 01/09/18 09:31 87.7 F L 76 16 122/75 97 General: Conversant, No Apparent Distress HEENT: Atraumatic, Normocephaly, Mucus Membranes Moist Neck: No JVD, Normal carotid pulses Cardiac: Reg Rate and Rhythm, Normal S1 and S2, No Murmur Lungs: Normal Breath Sounds, No Wheeze, Rales, Rhonchi Neuro: Alert and responsive, No focal deficits noted Abdomen: Soft, Non-Tender Skin: No rashes noted on visualized skin Musculoskeletal: No Chest Wall Tenderness Extremities: No Clubbing, No Cyanosis, No Edema, Normal Pulses Results 01/09/18 00:03 01/09/18 00:03 Lab Results 01/09/18 01/09/18 01/09/18 00:03 00:03 00:03 WBC 15.0 H Hgb 15.4 Hct 45.5 Plt Count 292 D INR 1.0 APTT 27.0 Sodium Potassium Chloride Carbon Dioxide BUN Creatinine Glucose Calcium Troponin I B-Natriuretic Peptide 28 Lipase 01/09/18 01/09/18 00:03 00:03 WBC Hgb Hct Plt Count INR APTT Sodium 135 L Potassium 4.0 Chloride 103 Carbon Dioxide 24 BUN 20 Creatinine 0.80 Glucose 331 H Calcium 9.5 Troponin I < 0.03 B-Natriuretic Peptide Lipase 123 H Consult Discharge Plan - Plan Referrals: Daniel Romero MD [Primary Care Provider] -
[2018-01-09] MEDS: predniSONE 20 MG TABLET PO SCH ×3 (11:43→21:48)
[2018-01-09] MEDS: amLODIPine 5 MG TABLET PO SCH (11:43)
[2018-01-09] MEDS: Doxycycline 100 MG CAPSULE PO SCH ×2 (11:43→21:48)
[2018-01-09] MEDS: Aspirin 81 MG TAB.CHEW PO SCH (11:43)
[2018-01-09 12:05] LABS: Chol/HDL Ratio 3.8 (0-4.9)
--- NOTE | 2018-01-09 15:34 | Event Note ---
Date of Encounter: 01/09/18 Time of Encounter: 15:00 - Cardiology Event Note Plan was for LHC today, do to unforseen circumstances, LHC will not be able to be performed today. Denies current chest pain. Will make NPO after midnight and plan for LHC tomorrow. Patient and family updated and apologies given.
[2018-01-09] MEDS ORDERED: *HR* Dextrose 50 % in Water (Syg) 50 ML SYRINGE IVP PRN (16:00)
[2018-01-09] MEDS ORDERED: Dextrose Gel 15 GM/37.5 ML TUBE PO PRN ×2 (16:00)
[2018-01-09] MEDS ORDERED: D5% in Water 1,000 ML IVC PRN (16:00)
[2018-01-09] MEDS: Insulin LISPRO 300 UNITS/3 ML VIAL SQ SCH (17:16)
[2018-01-09] MEDS ORDERED: Insulin LISPRO 300 UNITS/3 ML VIAL SQ SCH (21:00)
[2018-01-10] MEDS ORDERED: Adenosine 90 MG/30 ML MLS IV ONE (02:18)
[2018-01-10 06:24] LABS: Hematocrit 46.3 % (37.5-50.1); Hemoglobin 15.5 g/dL (12.9-16.9); Mean Corpuscular HGB Conc 33.5 g/dL (31.6-35.5); Mean Corpuscular Hemoglobin 29.1 pg (28.0-33.3); Mean Platelet Volume 8.5 fL (9.4-12.4); Platelet Count 276 K/mcL (140-400); Red Blood Count 5.32 M/mcL (4.19-5.50); Red Cell Distribution Width 12.9 % (11.5-14.5); Segmented Neutrophils % 58.2 %
[2018-01-10 06:25] LABS: Basophils # 0.1 K/mcL (0.0-0.2); Basophils % 0.4 %; Eosinophils # 0.3 K/mcL (0.0-0.6); Eosinophils % 2.1 %; Immature Granulocytes % 2.2 % (0-4); Lymphocytes # 3.8 K/mcL (0.6-4.6); Lymphocytes % 31.8 %; Monocytes # 0.6 K/mcL (0.0-1.3); Monocytes % 5.3 %
[2018-01-10 06:45] LABS: Alanine Aminotransferase 25 Units/L (7-52); Albumin/Globulin Ratio 1.5 (1.1-2.2); Alkaline Phosphatase 93 Units/L (34-104); Aspartate Amino Transferase 15 Units/L (13-39); BUN/Creatinine Ratio 25 (6-26); Bilirubin,Total 0.4 mg/dL (0.3-1.0); Blood Urea Nitrogen 19 mg/dL (6-20); Calcium 9.1 mg/dL (8.6-10.3); Carbon Dioxide 24 mEq/L (23-29); Chloride 104 mEq/L (98-107); Globulin 2.7 g/dL (2.4-3.5); Glucose 286 mg/dL (70-105); Osmolality,Calculated 293 (280-300); Phosphorous 2.7 mg/dL (2.7-4.5); Sodium 135 mEq/L (136-145); Total Protein 6.7 g/dL (6.4-8.9); eGFR For Non-African Americans > 60 (> 60)
[2018-01-10] MEDS: predniSONE 20 MG TABLET PO SCH (08:27)
[2018-01-10] MEDS: Insulin LISPRO 300 UNITS/3 ML VIAL SQ SCH (08:28)
[2018-01-10] MEDS: Aspirin 81 MG TAB.CHEW PO SCH (08:28)
[2018-01-10] MEDS: Doxycycline 100 MG CAPSULE PO SCH (08:28)
[2018-01-10] MEDS: amLODIPine 5 MG TABLET PO SCH (08:28)
[2018-01-10] MEDS ORDERED: *HR* Heparin 10,000 UNIT/10 ML VIAL ONE ×2 (11:43→12:15)
[2018-01-10] MEDS ORDERED: Verapamil 5 MG/2 ML VIAL ONE ×2 (11:43→12:14)
[2018-01-10] MEDS ORDERED: Heparin 1,000 UNITS/500 mL 500 ML ONE ×2 (11:44→12:15)
[2018-01-10] MEDS ORDERED: ISOVUE-370 200 ML INFUS..BTL ONE ×3 (11:44→13:35)
[2018-01-10] MEDS ORDERED: 0.9 % Sodium Chloride 1,000 ML ONE ×3 (11:44→12:15)
[2018-01-10] MEDS ORDERED: Nitroglycerin 1,000 MCG/10 ML VIAL IV ONE ×2 (11:44→12:15)
[2018-01-10] MEDS ORDERED: *HR* FentaNYL (PF) 100 MCG/2 ML VIAL ONE (12:52)
[2018-01-10] MEDS ORDERED: *HR* Midazolam HCl 2 MG/2 ML VIAL ONE (12:52)
--- NOTE | 2018-01-10 12:55 | Pre-Sedation Evaluation ---
Pre-sedation evaluation - Pre-sedation checklist Date of procedure: 01/10/18 Procedure: [facility] Recent Vitals: Last Vital Signs Temp 98.3 F 01/10/18 11:06 Pulse 57 01/10/18 11:06 Resp 16 01/10/18 11:06 BP 119/70 01/10/18 11:06 Pulse Ox 96 01/10/18 11:06 H&P (including ROS) documented in medical record: Yes Previous reaction to sedatives/anesthetics: No Dietary Status: NPO after Midnight Dentition: poor dentition ASA Classification *see protocol: CLASS II-Mild systemic disease Plan of Care: Pt appropriate candidate for procedure/moderate/conscious sedation, Risks/benefits of procedure/sedation discussed w/ patient/family Cardiac Registry (Cardio Only) - Functional Capacity Functional Capacity: >=4 METS with symptoms - Clincal Frailty Scale Clinical Frailty Scale: Managing Well
[2018-01-10] MEDS ORDERED: Tirofiban 12.5 MG/250ML 12.5 MG/250 ML BAG ONE (13:29)
[2018-01-10] MEDS ORDERED: *HR* HYDROcodone/Acet 5/325 mg TABLET PO PRN (13:46)
[2018-01-10] MEDS ORDERED: Acetaminophen 325 MG TABLET PO PRN (13:46)
[2018-01-10] MEDS ORDERED: Tirofiban 12.5 MG/250ML 12.5 MG/250 ML BAG IVC SCH (14:00)
--- NOTE | 2018-01-10 14:09 | Invasive Diagnostic Lab Proc ---
Name: Danny Caceres Date of Study: 01/10/2018 Date: 1965 Ht: 72.0in Medical Record#: [id number] Age: 52 Wt: 205.03lb Gender: Male BSA: 2.15 Order #: [id number] BMI: 27.77 Physicians Procedure Physician: Parrish Barroso MD, [facility] Referring MD: Referring MD: Staff Name Position Time In Jessica Guzman RN Monitor 12:55 PM Adrienne Palomo RT (R) Scrub 12:55 PM Francine Florez RN Sign Writer Letterer Or Painter 12:55 PM Indications Indication Unstable Angina Procedures Performed Procedure L HRT ARTERY/VENTRICLE ANGIO IV Doppler BLD Flow 1st Vessel PRQ CARD LIZBET STENT W/ANGIO 1 VSL Pre-Procedure Checklist Informed consent is complete signed and on chart. H&P is on chart. ID band is on and ID verified with patient. Patient NPO for procedure The procedure was described for the patient and questions were answered. Blood Pressure: 134/90 ECG is on chart. Rhythm: NSR Plan of Care Patient will tolerate the procedure without complications. Adequate level of comfort will be maintained. Hemodynamics will remain stable Patient will recover from procedure without complications. Respiratory function will be maintained. Cardiac rhythm will remain stable. Patient temperature will be maintained. Patient and/or family have verbalized understanding of the procedure. Patient Education Chief Complaint/Reason for Test: Cardiac Cath Developmental Category: Adult (18-64 years) Developmentally Appropriate for Age: Yes Learning Barriers: None Education Needs: Plan of Care Education Method: Verbal Information Taught: Cardiac Cath Educational Evaluation: Able to repeat information Intravenous Access Time IV Size Location DC'd Fluid/Drip Rate Units RN 09:53 AM 20g 1 /" Patent On Arrival Lt Antecubital 0.9NaCl 25 ml/hr Francine Florez RN Allergies isosorbide gabapentin Vital Signs Time BP (mmHg) HR (bpm) O2 Sat. RR (bpm) LOC 12:59 PM 134 / 90 59 96 % 16 5 = Fully awake and oriented or at pre-proc level 12:52 PM 134 / 90 59 96 % 16 12:57 PM 115 / 74 64 98 % 13 01:02 PM 114 / 73 57 97 % 15 01:07 PM 113 / 79 62 97 % 15 01:12 PM 109 / 70 75 95 % 16 01:17 PM 126 / 74 64 96 % 14 01:22 PM 117 / 71 65 96 % 16 01:27 PM 128 / 81 75 97 % 12 01:32 PM 116 / 69 61 97 % 12 01:37 PM 115 / 71 60 96 % 14 01:42 PM 121 / 78 65 % 7 Procedural Medications Time Medication Dose Units Method Given By 12:57 PM Oxygen 2 L/min nasal cannula Francine Florez RN 12:57 PM Versed 2 mg Intravenous Francine Florez RN 12:57 PM Fentanyl 50 mcg Intravenous Francine Florez RN 01:07 PM Lidocaine 2% 0.5 ml Subcutaneous Parrish Barroso MD, FAC 01:09 PM Heparin 4000 units Nitroglycerin 200 mcg Verapamil 2.5 mg Intraarterial Parrish Barroso MD, FACC 01:21 PM Nitroglycerin 200 mcg Intracoronary Parrish Barroso MD 01:25 PM Adenosine 781 ml/hr Intravenous Francine Florez RN 01:27 PM Heparin 2000 units Intravenous Francine Florez RN 01:31 PM Aggrastat Bolus: 46 ml Intravenous Francine Florez RN 01:31 PM Aggrastat 12.5mg/250ml 16.5 ml/hr Intravenous Francine Florez RN 01:43 PM Plavix 600 mg Orally Francine Florez RN ASA Classification: CLASS II- Mild systemic disease (i.e. well-controlled diabetes, hypertension, asthma, cigarette smoking) Howie Score Preprocedure Postprocedure Activity 2- Moves 4 extremities sustained head lift Activity 2- Moves 4 extremities sustained head lift Circulation 2- SBP +/= 20 points of pre-anesthetic level Circulation 2- SBP +/= 20 points of pre-anesthetic level Consciousness 2- Awake and alert oriented x 3 Consciousness 2- Awake and alert oriented x 3 O2 Saturation 2- Able to maintain O2 satruation of 92% on room air O2 Saturation 2- Able to maintain O2 satruation of 92% on room air Respiratory 2- Able to deep breathe and cough well Respiratory 2- Able to deep breathe and cough well Total Score 10 Total Score 10 Contrast Agent: Isovue Diagnostic Contrast: 111 ml Total Contrast: 111 ml Fluoro Dose: 28 mGy Activated Clotting Time Time Seconds to Clot 01:27 PM 247 Procedure Log Time Note Enter By 12:51 PM CathStat 12:51 PM Vitals capture started with the following parameters, Patient=Adult, Interval=5 min, Initial Flkrhuhj=228 mmHg, Deflation Rate=3 mmHg, Cuff placed on Right Arm 12:52 PM HR=59 bpm, SPFJ=218/90 mmhg, SpO2=96.0 %, Resp=16 B/min, EtCO2=35 mmHg, Comment=NSR 12:54 PM Recorded ECG: HR=61 Condition=Condition 1 12:55 PM Pt arrived to rd lab technician 1 at 12:55 scoates 12:55 PM Physician arrived 12:55 scoates 12:55 PM Meet and greet completed scoates 12:55 PM Sign in performed according to hospital policy. Informed consent was obtained. scoates 12:55 PM Procedure start 12:55 scoates 12:55 PM Jessica Guzman RN Position: Monitor Time in: 12:55 scoates 12:55 PM Adrienne Palomo RT (R) Position: Scrub Time in: 12:55 scoates 12:56 PM Francine Florez RN Position: Sign Writer Letterer Or Painter Time in: 12:55 scoates 12:56 PM Patient charges- Angio tray pack, Navilyst 3mm J, Pulse Oximetry and ACIST tubing and transducer scoates 12:56 PM Case Delayed No scoates 12:56 PM Hair removed from procedure site in procedure lab using clippers. Right wrist and Right groin prepped with Chloraprep by Jessica Guzman RN, then patient was draped. Skin intact. scoates 12:57 PM Time: 12:57 Oxygen on at 2 L/min per nasal cannula by Francine Florez RN scoates 12:57 PM Time: 12:57 Versed 2 mg Intravenous Given by Francine Florez RN scoates 12:57 PM Time: 12:57 Fentanyl 50 mcg Intravenous Given by Francine Florez RN scoates 12:57 PM HR=64 bpm, HDZO=920/74 mmhg, SpO2=98.0 %, Resp=13 B/min, EtCO2=35 mmHg, Comment=NSR 12:59 PM Time: 12:59 Patient comfortable and pain free: Yes scoates 12:59 PM Time: 12:59LOC: 5 = Fully awake and oriented or at pre-proc level scoates 12:59 PM Clinical Presentation: Unstable angina scoates 01:02 PM Pressure channel 1 zeroed. 01:02 PM HR=57 bpm, GYGE=302/73 mmhg, SpO2=97.0 %, Resp=15 B/min, EtCO2=35 mmHg, Comment=NSR 01:03 PM Pressure channel 1 zeroed. 01:05 PM Time out was performed according to hospital policy. Conscious sedation and anesthesia was achieved (see medication log with in this report above) scoates 01:06 PM ASA Class CLASS II- Mild systemic disease (i.e. well-controlled diabetes, hypertension, asthma, cigarette smoking) lparsley 01:07 PM HR=62 bpm, KZVU=474/79 mmhg, SpO2=97.0 %, Resp=15 B/min, EtCO2=35 mmHg, Comment=NSR 01:08 PM Time: 13:07 0.5 ml Lidocaine 2% to right radial Subcutaneous Given by Parrish Barroso MD, [facility] lparsley 01:09 PM Access obtained by percutaneous puncture. 6Fr 10cm Terumo Glidesheath sheath placed in right Radial artery. [id number] lparsley 01:09 PM Time: 13:09 Patient given 4,000 units Heparin, 200 mcg Nitroglycerin, and 2.5 mg Verapamil Intraarterial by Parrish Barroso MD, [facility]. This is given to reduce risk of vessel spasm and thrombosis. lparsley 01:09 PM 5Fr TIG catheter inserted over the wire [facility] lparsley 01:10 PM 0.035 260cm Navilyst 3mmJ wire [id number] lparsley 01:11 PM LCA angiography performed in multiple views. lparsley 01:11 PM Recorded Pressure: Ao, HR=75, Condition=Condition 1 (Aorta) Ao 72/62/68 01:12 PM HR=75 bpm, DHDH=442/70 mmhg, SpO2=95.0 %, Resp=16 B/min, EtCO2=35 mmHg, Comment=NSR 01:13 PM RCA angiography performed in multiple views. lparsley 01:14 PM Recorded Pressure: Ao, HR=71, Condition=Condition 1 (Aorta) Ao 78/64/72 01:15 PM [ Start FFR sample ] 01:16 PM Catheter removed [email or web address] 01:16 PM 5Fr Pigtail catheter inserted over the wire [facility] lparsley 01:17 PM Catheter crossed the aortic valve and was selectively placed in the left ventricle. Pressures recorded on pullback for left heart catheterization. lparsley 01:17 PM Bolus angiogram of left Ventricle complete: 10 ml/sec for a total of 20 mls lparsley 01:17 PM HR=64 bpm, REAL=561/74 mmhg, SpO2=96.0 %, Resp=14 B/min, EtCO2=35 mmHg, Comment=NSR 01:17 PM Pressure channel 1 zeroed. 01:18 PM Recorded Pressure: LV, RA, HR=65, Condition=Condition 1 (Left Ventricle) LV 116/-7/12, (Right Atrium) RA -/-/28 01:18 PM Recorded Pressure: LV, Ao, RA, HR=69, Condition=Condition 1 (Left Ventricle) LV 114/5/12, (Aorta) Ao 99/67/83, (Right Atrium) RA -/-/ 01:19 PM Catheter removed lparsley 01:19 PM Coronary Dominance: right lparsley 01:20 PM 6Fr RBL 3.5 Convey guide catheter was used to cannulate the PCI vessel successfully. reused? No lparsley 01:21 PM Pressure channel 3 zeroed. 01:21 PM Time: 13:21 Nitroglycerin 200 mcg Intracoronary Given by Parrish Barroso MD lparsley 01:21 PM Inflation device was opened. lparsley 01:22 PM [employer] FFR Wire advanced to target lesion. lparsley 01:22 PM HR=65 bpm, LSCZ=774/71 mmhg, SpO2=96 %, Resp=16 B/min 01:22 PM Lesion found in Mid RCA. Pre Stenosis: 20 lparsley 01:23 PM Lesion found in Proximal LAD. Pre Stenosis: 80 lparsley 01:24 PM Pressure channel 3 equalized to channel 1. 01:25 PM Pressure channel 3 equalized to channel 1. 01:25 PM Time: 13:25 Adenosine 781 ml/hr Intravenous Given by Francine Florez RN lparsley 01:26 PM Recorded Pressure: Ao, PV1, HR=71, Condition=Condition 1 (Aorta) Ao 142/99/119, (Portal Vein) PV1 120/120/94 01:26 PM FFR: Value=0.74, Condition=Condition 1, Device=VOLCANO PRIME WIRE 01:26 PM Recorded Pressure: Ao, PV1, FFR=0.74, HR=69, Condition=Condition 1 (Aorta) Ao 142/95/115, (Portal Vein) PV1 119/-15/-18 01:27 PM At 13:27 the ACT was 247 seconds. lparsley :27 PM HR=75 bpm, JVCZ=071/81 mmhg, SpO2=97.0 %, Resp=12 B/min, EtCO2=35 mmHg, Comment=NSR 01: PM Time: 13:27 Heparin 2000 units Intravenous Given by Francine Florez RN lparsley 01:29 PM Flow Wire/Catheter removed intact lparsley 01:30 PM FFR Measurement: 0.74 lparsley 01:30 PM 2.5 mm x 15 mm Emerge Monorail balloon across target lesion- successful. reused? No lparsley :30 PM Balloon inflated @ 14 tasha for 25 seconds lparsley 01:31 PM Balloon catheter removed intact. lparsley :31 PM Time: 13:31 Aggrastat Bolus: 46 ml Intravenous Given by Francine Florez RN Gonzalez pump lparsley :32 PM Time: 13:31 Aggrastat 12.5mg/250ml 16.5 ml/hr Intravenous Given by Francine Florez RN Gonzalez pump lparsley :32 PM 3.0mm x 17mm Cordis EluNIR drug-eluting stent across target lesion- successful Lot #[id number] lparsley 01:32 PM HR=61 bpm, AUYW=465/69 mmhg, SpO2=97.0 %, Resp=12 B/min, EtCO2=36 mmHg, Comment=NSR 01:33 PM Recorded Pressure: Ao, HR=61, Condition=Condition 1 (Aorta) Ao 109/82/95 01:33 PM Stent deployed @ 12 tasha for 15 seconds lparsley 01:33 PM Stent balloon reinflated @ 16 tasha for 10 seconds lparsley 01:34 PM PCI Status Urgent lparsley 01:34 PM PCI lesion in Proximal LAD. Pre Stenosis: 80 Pre VIOLA Flow: 3: Complete and Brisk Flow/Perfusion lparsley 01:35 PM PCI lesion in Proximal LAD. lparsley 01:35 PM Stent delivery system removed intact. lparsley 01:35 PM 3.5 mm x 8mm NC Trek Rx balloon across target lesion- successful. reused? No lparsley 01:36 PM Recorded Pressure: Ao, HR=59, Condition=Condition 1 (Aorta) Ao 115/81/97 01:36 PM Balloon inflated @ 16 tasha for 14 seconds lparsley 01:37 PM Flow Wire/Catheter removed intact lparsley 01:37 PM HR=60 bpm, JPUD=444/71 mmhg, SpO2=96.0 %, Resp=14 B/min, EtCO2=35 mmHg, Comment=NSR 01:37 PM Balloon catheter removed intact. lparsley 01:38 PM Guide catheter removed intact. lparsley 01:39 PM Procedure completed at 13:39 01/10/2018 lparsley 01:40 PM Did you address VIOLA flow and Dominance? Yes lparsley :40 PM Sign out completed: Radiation Dose 418.59 mGy, 28.3101 Gy/cm2 Fluoro Time: 5.9 Isovue 370 - 200ml contrast 111 ml given by Parrish Barroso MD, [facility]. Complications: None. The patient was discharged out of the lab[employer] in stable condition. Cardiac Rehab Consult needed: YesConfirmed administered medications: Yes lparsley :41 PM Isovue 370 - 200ml,2 Bottle(s) used. lparsley 01:41 PM Arterial sheath pulled, Vasc Band closure device used and was Successful S/N. lparsley :42 PM 12 ml air in Vasc Band. lparsley 01:42 PM Estimated Blood Loss: less than 20cc lparsley 01:42 PM Post ECG NSR lparsley 01:42 PM Post Blood Pressure 115/71 lparsley :42 PM 13:42 Post Pulses Rt Radial 2+ lparsley 01:42 PM HR=65 bpm, LNJT=305/78 mmhg, Resp=7 B/min, EtCO2=35 mmHg, Comment=NSR 01:42 PM Information taught Cardiac Cath, PCI, and IVUS/Flowire lparsley 01:43 PM Education needs Procedure, Plan of Care, and Safe & Effective Use of Medications lparsley 01:43 PM Learning barriers :None lparsley :43 PM Education Methods Verbal lparsley 01:43 PM Education evaluation Able to repeat information lparsley 01:43 PM Site status No bleeding/hematoma - Rt Wrist as reported by Adrienne Palomo RT (R) at 13:43 [email or web address] 01:43 PM Time: 13:43 Plavix 600 mg Orally Given by Francine Florez RN [email or web address] 01:46 PM Report given to Jessica BOCANEGRA Pt taken to 3A Room #11. 13:45 [email or web address] 01:46 PM Plavix, Effient or Brilinta given Yes lparsley 01:48 PM Delay to floor No lparsley 01:48 PM Patient out of room: 13:48 lparsizabel 01:49 PM Family placed in consult room. lparsley 01:49 PM Complications: None lparsley 01:49 PM Right Coronary, Right Posterior Descending Arteries with Right Posterolateral and Acute Marginal branches with 20 % stenosis. lparsley 01:49 PM Proximal Left Anterior Descending Coronary Artery with 80% stenosis. [facility] Complications Complication None Hemodynamics Pressures Site Systolic/A Wave Diastolic/V Wave Mean AO 72 62 68 AO 78 64 72 LV 116 -7 12 RA -28 -28 -28 LV 114 5 12 AO 99 67 83 RA -28 -28 -28 AO 142 99 119 PV1 120 120 94 AO 142 95 115 PV1 119 -15 -18 AO 109 82 95 AO 115 81 97 Post Procedure Information Blood Pressure: 115/71 mmHg Rhythm: NSR Post procedural instructions were given Closure Device Time Device Success/Fail 01/10/2018 1:39:00 PM Mechanical Compression Successful Site Checks Time Location Status Staff Sheath In? Note 01:43 PM Rt Wrist No bleeding/hematoma Adrienne Palomo RT (R) Pulses Time Site Pre-Procedure Post-Procedure Note 01/10/2018 9:53:00 AM Bilateral DP & PT 2+ 1:42:00 PM Rt Radial 2+ Updated by Jessica Guzman RN on 01/10/2018 1:59:47 PM electronically signed on 01/10/2018 2:01:05 PM with status of Final
[2018-01-10] MEDS: *HR* Metformin 500 MG TABLET PO SCH (16:53)
[2018-01-10] MEDS ORDERED: Insulin Human Regular 10 UNIT in 0.9 % Sodium Chloride 10 ML IV ONE (17:14)
--- NOTE | 2018-01-10 17:57 | Internal Med Progress Note ---
Hospitalist Progress Note - Encounter Date of Encounter: 01/10/18 Time of Encounter: 17:00 - Subjective Interval History: SUBJECTIVE: The patient had cardiac catheterization today. They inserted one coronary stent. He has not had any chest pain since the procedure. He is concerned of high glucose levels. He does have type 2 diabetes mellitus. He is to take Janumet; stopped several months ago, as he could not afford for it. His last hemoglobin A1c was 9.4%. OBJECTIVE: Skin: Free of rash and discoloration. ENMT: Oral/pharyngeal mucosa is normal in appearance. Eyes: Sclera is white. There is no discharge from eyes. Respiratory: Normal breath sounds; no crackles or wheezes. CV: Heart is regular; no gallop or murmur. GI: Abdomen is soft and not tender. There is no palpable mass or visceromegaly. Neuro: There is no focal deficits. ADDITIONAL DATA: His troponin was checked on 4 occasions; normal results. CBC shows WBC of 12.0 thousand. Otherwise, is normal. His BMP is normal, too. Magnesium is 2.0. ASSESSMENT AND PLAN: Chest pain/coronary artery disease. He had cardiac catheterization today; one coronary stent was inserted. We will keep him on Aggrastat and her Plavix. He is also on Lopressor, Norvasc and Lipitor. Type 2 diabetes mellitus, uncontrolled. It is likely hrp-pyvrcsi-ircnjczgu. We will try metformin at 1000 mg by mouth twice a day. We may also add Amaryl and/or Januvia. Hypertension. Seems to be under control. We will continue Lopressor and Norvasc. Hyperlipidemia. Under control. We will continue Lipitor. Depression with anxiety. Under control. We will continue Celexa. DISPOSITION: I anticipate his discharge her tomorrow afternoon. - Exam Vitals: Temp Pulse Resp BP Pulse Ox 98.2 F 81 17 115/69 93 01/10/18 14:38 01/10/18 14:38 01/10/18 14:38 01/10/18 14:38 01/10/18 14:38 Exam: xx - Assessment and Plan (1) Chest pain Current Visit: No Status: Acute (2) CAD (coronary artery disease) Current Visit: Yes Status: Acute (3) T2DM (type 2 diabetes mellitus) Current Visit: Yes Status: Acute (4) Hypertension Current Visit: No Status: Chronic (5) HLD (hyperlipidemia) Current Visit: Yes Status: Chronic (6) Depression with anxiety Current Visit: Yes Status: Chronic - Time Spent with Patient Total time spent is greater than 50% in coordination of care (as documented) at patient's floor/unit and/or counseling patient: 25 - 35 minutes Plan of Care Discussed with: patient (and family..) Internal Medicine: Result - Labs CBC & Chem 7: 01/10/18 06:14 01/10/18 06:14 Labs: Short CBC 01/10/18 Range/Units 06:14 WBC 12.0 H (4.3-11.1) K/mcL Hgb 15.5 (12.9-16.9) g/dL Hct 46.3 (37.5-50.1) % Plt Count 276 (140-400) K/mcL Neutrophils # 7.0 (1.6-8.9) K/mcL BMP 01/10/18 06:14 Sodium 135 L Potassium 4.0 Chloride 104 Carbon Dioxide 24 BUN 19 Creatinine 0.77 Glucose 286 H Calcium 9.1 Cardiac Enzymes 01/09/18 Range/Units 21:28 Troponin I < 0.03 (< 0.04) ng/mL Liver Function 01/10/18 Range/Units 06:14 Total Bilirubin 0.4 (0.3-1.0) mg/dL AST 15 (13-39) Units/L ALT 25 (7-52) Units/L Alkaline Phosphatase 93 (34-104) Units/L Albumin 4.0 (3.5-5.7) g/dL - ABG Interpretation ABG results: PT/INR, D-dimer PT 11.3 Seconds (9.4-12.1) 01/09/18 00:03 Consult Discharge Plan - Plan Referrals: Daniel Romero MD [Primary Care Provider] - (1) Chest pain Qualifiers: Chest pain type: precordial pain Qualified Code(s): R07.2 - Precordial pain (2) CAD (coronary artery disease) Qualifiers: Coronary Disease-Associated Artery/Lesion type: [place] artery [place] vs. transplanted heart: [place] heart Associated angina: with unstable angina Quali fied Code(s): I25.110 - Atherosclerotic heart disease of [place] coronary artery with unstable angina pectoris (3) T2DM (type 2 diabetes mellitus) Qualifiers: Diabetes mellitus assisted insulin use: without termite exterminator use Diabetes mellitus complication status: with hyperglycemia Qualified Code(s): E11.65 - Type 2 diabetes mellitus with hyperglycemia (4) Hypertension Qualifiers: Hypertension type: essential hypertension Qualified Code(s): I10 - Essential (primary) hypertension (5) HLD (hyperlipidemia) Qualifiers: Hyperlipidemia type: unspecified Qualified Code(s): E78.5 - Hyperlipidemia, unspecified
[2018-01-10 18:08] LABS: Hematocrit 46.3 % (37.5-50.1); Hemoglobin 15.6 g/dL (12.9-16.9); Mean Corpuscular HGB Conc 33.7 g/dL (31.6-35.5); Mean Corpuscular Hemoglobin 29.7 pg (28.0-33.3); Mean Corpuscular Volume 88.2 fL (83.0-100.0); Mean Platelet Volume 8.6 fL (9.4-12.4); Platelet Count 295 K/mcL (140-400); Red Blood Count 5.25 M/mcL (4.19-5.50); Red Cell Distribution Width 12.8 % (11.5-14.5)
[2018-01-10 18:22] LABS: eGFR For Non-African Americans > 60 (> 60)
[2018-01-11] MEDS: *HR* Metformin 500 MG TABLET PO SCH (08:20)
[2018-01-11] MEDS: Aspirin 81 MG TAB.CHEW PO SCH (08:21)
[2018-01-11] MEDS: amLODIPine 5 MG TABLET PO SCH (08:21)
[2018-01-11] MEDS ORDERED: *HR* GlyBURIDE 5 MG TABLET PO SCH (08:30)
--- NOTE | 2018-01-11 10:51 | Cardiology Progress Note ---
Date of Encounter: 01/11/18 Time of Encounter: 09:45 Assessment and Plan (1) CAD (coronary artery disease) Current Visit: Yes Status: Chronic Per Cardiology: Recurrent episodes of chest pain ongoing recent negative stress test June 2017 with a preserved ejection fraction. She does have nonobstructive disease with a 60% blockage in the proximal LAD therefore high risk territory. FFR at that time by Dr. Barroso was unremarkable. Status post left heart catheterization and status post PTCA/drug-eluting stent to proximal LAD 80% lesion, has remaining no nobstructive mid RCA 20% lesion. Chest pain-free. On aspirin, Plavix, statin, beta florentin. Cardiology will sign off, prepping for discharge home today in stable condition, follow-up arranged. Postprocedure care and education provided. All questions answered. Qualifiers: Coronary Disease-Associated Artery/Lesion type: [place] artery [place] vs. transplanted heart: [place] heart Associated angina: with unstable angina Qualified Code(s): I25.110 - Atherosclerotic heart disease of [place] coronary artery with unstable angina pectoris Discussion w patient/family: The assessment and plan as outlined above was discussed with the patient and/or family members who expressed understanding and agreement. All questions were answered. Thank you for involving us in the care of your patient. Please call with any questions. Subjective Principal diagnosis: CAD Interval history: Patient denies any concerns over night. Denies any chest pain, shortness of breath, palpitations, denies any concerns with his right wrist site. Objective Vital Signs, Last 4 Hours Temp Pulse Resp BP Pulse Ox 01/11/18 06:19 97.7 F 65 16 128/76 97 General: Conversant, No Apparent Distress HEENT: Atraumatic, Normocephaly, Mucus Membranes Moist Neck: No JVD, Normal carotid pulses Cardiac: Reg Rate and Rhythm, Normal S1 and S2, No Murmur Lungs: Normal Breath Sounds, No Wheeze, Rales, Rhonchi Neuro: Alert and responsive, No focal deficits noted Abdomen: Soft, Non-Tender Skin: No rashes noted on visualized skin, Other (Right wrist site dry and intact, no hematoma, no ecchymosis, no bleeding, right radial pulse 2+ palpable) Musculoskeletal: No Chest Wall Tenderness Extremities: No Clubbing, No Cyanosis, No Edema, Normal Pulses Results 01/10/18 17:51 01/10/18 17:51 Lab Results 01/10/18 01/10/18 17:51 17:51 WBC 11.9 H Hgb 15.6 Hct 46.3 Plt Count 295 Creatinine 0.83 Active Medications Acetaminophen (Tylenol) 650 mg PO Q6HR PRN PRN Reason: Mild Pain Stop: 07/12/18 13:47 Last Admin: 01/10/18 15:42 Dose: 650 mg Hydrocodone Bitart/Acetaminophen ([place] 5-325 Mg) 1 tab PO Q4HR PRN PRN Reason: Moderate Pain Stop: 07/12/18 13:47 Amlodipine Besylate (Norvasc) 2.5 mg PO DAILY [facility]; Protocol Stop: 07/11/18 09:01 Last Admin: 01/11/18 08:21 Dose: 2.5 mg Aspirin (Aspirin) 81 mg PO DAILY [facility] Stop: 07/11/18 09:01 Last Admin: 01/11/18 08:21 Dose: 81 mg Atorvastatin Calcium (Lipitor) 40 mg PO HS [facility] Stop: 07/11/18 21:01 Last Admin: 01/10/18 20:26 Dose: 40 mg Citalopram Hydrobromide (Celexa) 20 mg PO DAILY [facility] Stop: 07/11/18 09:01 Last Admin: 01/11/18 08:20 Dose: 20 mg Clopidogrel Bisulfate (Plavix) 75 mg PO DAILY [facility] Stop: 07/13/18 09:01 Last Admin: 01/11/18 08:21 Dose: 75 mg Dextrose/Water (Dextrose 50% (Syg)) 25 ml IVP AD PRN PRN Reason: Hypoglycemia Stop: 07/11/18 16:01 Glucagon (Glucagen) 1 mg IM ONCE PRN PRN Reason: Hypoglycemia Stop: 07/11/18 16:01 Glucose (Gluctose) 15 gm PO ONCE PRN PRN Reason: Hypoglycemia Stop: 07/11/18 16:01 Glucose (Gluctose) 30 gm PO ONCE PRN PRN Reason: Hypoglycemia Stop: 07/11/18 16:01 Glyburide (Glyburide) 5 mg PO BIDWM [facility] Stop: 07/13/18 08:31 Last Admin: 01/11/18 10:11 Dose: 5 mg Dextrose (Dextrose 5%) 1,000 mls @ 100 mls/hr IVC .Q10H PRN PRN Reason: HYPOGLYCEMIA Stop: 07/11/18 16:01 Metformin HCl (Glucophage) 1,000 mg PO BIDWM [facility]; Protocol Stop: 07/12/18 17:01 Last Admin: 01/11/18 08:20 Dose: 1,000 mg Metoprolol Tartrate (Lopressor) 25 mg PO DAILY [facility] Stop: 07/11/18 09:01 Last Admin: 01/11/18 08:20 Dose: 25 mg Naloxone HCl (Narcan) 0.4 mg IVP Q2MIN PRN PRN Reason: SEE COMMENTS Stop: 07/11/18 09:13 Nitroglycerin (Nitroglycerin) 0.4 mg SL Q5MIN PRN PRN Reason: Chest Pain Stop: 07/10/18 23:37 - Imaging and Cardiology Cardiac cath: report reviewed Consult Discharge Plan - Plan Referrals: Daniel Romero MD [Primary Care Provider] -
--- NOTE | 2018-01-11 13:00 | Discharge Summary ---
Orders not resulted at time of discharge: Pending orders 01/10/18 08:13 CL Cardiac Catheterization [CL] Routine 01/10/18 18:00 ECG 12 lead ECG [ECG] Routine Date of Encounter: 01/11/18 Time of Encounter: 12:50 - Discharge Diagnosis (1) Chest pain Priority: Primary Status: Acute Qualifiers: Chest pain type: precordial pain Qualified Code(s): R07.2 - Precordial pain (2) CAD (coronary artery disease) Priority: Primary Status: Acute Qualifiers: Coronary Disease-Associated Artery/Lesion type: [place] artery [place] vs. transplanted heart: [place] heart Associated angina: with unstable angina Jovani lified Code(s): I25.110 - Atherosclerotic heart disease of [place] coronary artery with unstable angina pectoris (3) T2DM (type 2 diabetes mellitus) Priority: Secondary Status: Chronic Qualifiers: Diabetes mellitus fpc insulin use: without truck terminal manager use Diabetes kylah litus complication status: with hyperglycemia Qualified Code(s): E11.65 - Type 2 diabetes mellitus with hyperglycemia (4) Hypertension Priority: Secondary Status: Chronic Qualifiers: Hypertension type: essential hypertension Qualified Code(s): I10 - Essential (primary) hypertension (5) HLD (hyperlipidemia) Priority: Secondary Status: Chronic Qualifiers: Hyperlipidemia type: unspecified Qualified Code(s): E78.5 - Hyperlipidemia, unspecified (6) Depression with anxiety Priority: Secondary Status: Chronic Hospital course: HOSPITAL COURSE: This is a 52-year-old man. We admitted him with recurrent chest pain suggesting diagnosis of unstable angina. His cardiac enzymes were negative. EKG failed to show ischemia or other abnormalities. The patient got cardiac catheterization. A stent was put in the proximal portion of the LAD (80% narrowing). The patient did not have any more chest pain after cardiac catheterization. We had him to be hyperglycemic. He was not taking any treatments for diabetes mellitus at home. He does have history of type 2 diabetes mellitus. His hyperglycemia was likely triggered by taking oral prednisone at home (together with doxycyclinefor some respiratory infection). I started him on metformin. I added glyburide. I provided him with a diabetic education. CONDITION AT DISCHARGE: The patient feels good. Denies chest pain and difficulty breathing. Denies abdominal pain, nausea and vomiting. His glucose before lunch was around 200. Skin: Free of rash and discoloration. Respiratory: Normal breath sounds with no crackles and wheezes bilaterally. CV: Heart is regular with no gallop or murmur. GI: Abdomen is flat and soft with no palpable mass or visceromegaly. Neuro exam: There is no focal deficits. Normal speech, swallowing and gait. SEE DISCHARGE ORDERS/MEDICATIONS.. Discharge discussed with: patient, family, nurse Time spent discussing smoking cessation with patient: 3 to 10 minutes - Time Spent with Patient Total time spent providing and/or coordinating discharge services: Greater than 30 minutes (45 minutes..) - Discharge Medications Prescriptions: Clopidogrel [Plavix] 75 mg PO DAILY #30 tablet glyBURIDE [GlyBURIDE] 5 mg PO BIDWM #60 tablet Metformin HCl 1,000 mg PO BID #60 tablet Home Medications: Atorvastatin [Lipitor] 40 mg PO HS 05/12/15 [History] Citalopram [CeleXA] 20 mg PO DAILY 05/12/15 [History] amLODIPine [Norvasc] 2.5 mg PO DAILY 05/12/15 [History] Nitroglycerin [Nitrostat] 0.4 mg SL Q5M 07/04/17 [History] Aspirin 81 mg PO DAILY 01/09/18 [History] Clopidogrel [Plavix] 75 mg PO DAILY tablet 01/11/18 [Rx] Clopidogrel [Plavix] 75 mg PO DAILY #30 tablet 01/11/18 [Rx] Metformin HCl 1,000 mg PO BID #60 tablet 01/11/18 [Rx] Metoprolol [Lopressor] 12.5 mg PO BID #0 01/11/18 [Rx] glyBURIDE [GlyBURIDE] 5 mg PO BIDWM #60 tablet 01/11/18 [Rx] Allergies/Adverse Reactions: Allergy/AdvReac Type Severity Reaction Status Date / Time gabapentin [From Neurontin] AdvReac Vomiting Verified 01/03/18 14:15 isosorbide [From Imdur] AdvReac Vomiting Verified 01/03/18 14:15 Date of admission: 01/09/18 02:17 Primary care physician: Daniel Romero MD Consults: 01/09/18 08:19 Consult to Cardiology [CONS] Routine Comment: Consulting Provider: [facility] Reason for Consult: CP Call Completed: No 01/10/18 13:47 Consult to Cardiac Rehabilitation-Phase1 [CONS] Routine Comment: Reason for Consult: post op PCI Call Completed: Yes Discharging clinician: Rick Calderon Anticipated date of discharge: 01/11/18 - Constitutional Vitals: Temp Pulse Resp BP Pulse Ox 97.7 F 97 14 124/81 97 01/11/18 10:03 01/11/18 10:03 01/11/18 10:03 01/11/18 10:03 01/11/18 10:03 General appearance: Present: A&O X 3, no acute distress, answers questions appropriately Exam: xx - Patient Status Disposition: Home, Self-Care Condition: Fair Functional capacity at discharge: independent ambulation Overall status at discharge: patient is back to baseline - Discharge Instructions Instructions: Glyburide/Metformin (By mouth), Diabetes Mellitus Type 2 in Adults (DC), Diabetes Mellitus Type 2 in Adults (GEN) Follow Up With: Parrish Barroso MD [Partnered Physician] [place] [facility] [place] [Primary Care Provider] - 01/18/18 9:00 am Additional Instructions: FINGERSTICKS FOR GLUCOSE -- DAILY/FASTING; TO ADJUST METFORMIN/GLYBURIDE, IF NEEDED.. FOLLOW-UP WITH PCP -- NEXT WEEK.. THE PT WAS ADVISED TO QUIT USING TABACCO.. - Diet and Activity Activity: resume usual activities as tolerated Diet: diabetic diet - VTE Reasons for not Prescribing Prophylaxis: Treatment not Indicated - Low risk for VTE Deep Vein Thrombosis/Pulmonary Embolism Present on Admission: No
[2018-01-11 14:56] VITALS: BP 135/84
--- NOTE | 2018-01-12 16:19 | Electrocardiograph Report ---
[address] [address] Test Date: 2018-01-08 Pat Name: Danny Caceres Department: [id number] Room: 3A11 Gender: M [employer] Curator: : [id number] Requested By: Abner Zamudio Order Number: [id number] Reading MD: Meliton Ya Measurements Intervals [place] Rate: 71 P: 50 LA: 133 QRS: 70 QRSD: 90 T: 73 QT: 386 QTc: 420 Interpretive Statements Sinus rhythm Electronically Signed On 01-12-2018 16:17:48 EDT by Meliton Ya
--- NOTE | 2018-01-13 22:17 | Electrocardiograph Report ---
[address] [address] Test Date: 2018-01-10 Pat Name: Danny Caceres Department: 115 Room: 3A11 Gender: M Qa Engineer: CRUZITO : 1965 Requested By: Parrish Barroso Order Number: [id number] Reading MD: Gabino Hong Measurements Intervals [place] Rate: 61 P: 27 [place]: 142 QRS: 53 QRSD: 94 T: 54 QT: 402 QTc: 405 Interpretive Statements SINUS RHYTHM Electronically Signed On 01-13-2018 22:16:11 EDT by Gabino Hong
== END 2018-01-11 17:20 | disposition home or self-care (01) ==
LOC: 3ANU 23:15 → EMEROOARM 23:15 → SUATTDRO 01-09 02:17 → 3ANU 01-09 03:11
PROVIDERS: ADMIT Pediatrics; ATTEND Internal Medicine

== ENCOUNTER 2021-10-11 18:45 | Observation (INO) ==
[2021-10-11 19:32] LABS: Basophils # 0.1 K/mcL (0.0-0.2); Basophils % 0.4 %; Eosinophils # 0.2 K/mcL (0.0-0.6); Eosinophils % 1.7 %; Hematocrit 46.6 % (37.5-50.1); Hemoglobin 15.4 g/dL (12.9-16.9); Immature Granulocytes % 0.4 % (0-4); Lymphocytes # 1.9 K/mcL (0.6-4.6); Lymphocytes % 16.4 %; Mean Corpuscular Hemoglobin 30.1 pg (28.0-33.3); Mean Platelet Volume 8.9 fL (9.4-12.4); Monocytes # 0.6 K/mcL (0.0-1.3); Monocytes % 5.6 %; Neutrophils # 8.6 K/mcL (1.6-8.9); Platelet Count 198 K/mcL (140-400); Red Blood Count 5.12 M/mcL (4.19-5.50); Red Cell Distribution Width 13.1 % (11.5-14.5); Segmented Neutrophils % 75.5 %; White Blood Count 11.3 K/mcL (4.3-11.1)
[2021-10-11 19:49] LABS: INR 1.1
[2021-10-11 19:54] LABS: BUN/Creatinine Ratio 21 (6-26); Blood Urea Nitrogen 16 mg/dL (6-20); Calcium 9.4 mg/dL (8.6-10.3); Carbon Dioxide 23 mEq/L (23-29); Chloride 104 mEq/L (98-107); Glucose 116 mg/dL (70-105); Osmolality,Calculated 286 (280-300); Potassium 4.2 mEq/L (3.5-5.1); Sodium 137 mEq/L (136-145); Troponin I < 0.03 ng/mL (< 0.04); eGFR For African Americans > 60 (> 60); eGFR For Non-African Americans > 60 (> 60)
[2021-10-11 23:25] LABS: Alanine Aminotransferase 16 Units/L (7-52); Albumin 4.4 g/dL (3.5-5.7); Albumin/Globulin Ratio 1.5 (1.1-2.2); Alkaline Phosphatase 105 Units/L (34-104); Aspartate Amino Transferase 14 Units/L (13-39); Bilirubin,Direct 0.1 mg/dL (0.0-0.2); Bilirubin,Indirect 0.7 mg/dL (0.0-1.0); Bilirubin,Total 0.8 mg/dL (0.3-1.0); Lipase 31 Units/L (11-82); Total Protein 7.4 g/dL (6.4-8.9)
[2021-10-12] MEDS ORDERED: GI Cocktail 40 ML EACH PO ONE ×2 (08:57→14:38)
[2021-10-12] MEDS ORDERED: Ondansetron 4 MG/2 ML VIAL IVP PRN (09:40)
[2021-10-12] MEDS ORDERED: Naloxone 0.4 MG/ML INJ IVP PRN (09:40)
[2021-10-12] MEDS ORDERED: Dextrose Gel 15 GM/37.5 ML TUBE PO PRN ×2 (09:50)
[2021-10-12] MEDS ORDERED: *HR* Dextrose 50 % in Water (Syg) 50 ML SYRINGE IVP PRN (09:50)
[2021-10-12] MEDS ORDERED: D5% in Water 1,000 ML IVC PRN (09:50)
[2021-10-12] MEDS: Insulin LISPRO 300 UNITS/3 ML VIAL SUBQ SCH ×2 (12:05→17:51)
[2021-10-12] MEDS: Ranolazine 500 MG TAB.ER.12H PO SCH (22:26)
[2021-10-13 03:52] LABS: BUN/Creatinine Ratio 16 (6-26); Blood Urea Nitrogen 16 mg/dL (6-20); Calcium 9.1 mg/dL (8.6-10.3); Carbon Dioxide 28 mEq/L (23-29); Chloride 105 mEq/L (98-107); Glucose 153 mg/dL (70-105); Osmolality,Calculated 292 (280-300); Potassium 4.5 mEq/L (3.5-5.1); Sodium 139 mEq/L (136-145); eGFR For African Americans > 60 (> 60); eGFR For Non-African Americans > 60 (> 60)
[2021-10-13] MEDS ORDERED: Aspirin 81 MG TAB.CHEW PO SCH (09:00)
[2021-10-13] MEDS: Ranolazine 500 MG TAB.ER.12H PO SCH (10:06)
[2021-10-13] MEDS: Insulin LISPRO 300 UNITS/3 ML VIAL SUBQ SCH ×2 (10:06→11:43)
[2021-10-13 10:33] VITALS: BP 129/79; PULSE 69; TEMP 97.9; O2SAT 97
[2021-10-13] MEDS ORDERED: Metoprolol XL (24 HR) Succ 50 MG TAB.ER.24H PO SCH (10:45)
[2021-10-13] MEDS ORDERED: Ranolazine 500 MG TAB.ER.12H PO SCH (21:00)
== END 2021-10-13 13:52 | disposition home or self-care (01) ==
LOC: EMEROOARM 18:45 → 3ANU 18:45 → SUATTDRO 10-12 16:07 → 3ANU 10-12 17:50
PROVIDERS: ADMIT Internal Medicine; ATTEND Internal Medicine